=== PATIENT | female | born 1990 | race Caucasian/White ===

== ENCOUNTER 2020-01-01 12:48 | Emergency (ER) | payer OTHER ==
[~2020-01-01] VITALS: Ht 162.6 cm; Wt 75.0 kg
[2020-01-01 13:33] LABS: COVID AG,FIA SOURCE NASOPHARYNGEAL
[2020-01-01 14:48] VITALS: BP 122/87
== END 2020-01-01 14:55 | disposition home or self-care (01) ==
LOC: EMS 12:48
DX: Z20.828 Contact with and (suspected) exposure to other viral communicable diseases (principal); F41.9 Anxiety disorder, unspecified; Z87.891 Personal history of nicotine dependence
CPT/HCPCS: 87426